=== PATIENT | female | born 2000 | race Caucasian/White ===

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

== ENCOUNTER 2021-03-03 21:48 | Emergency (ER) | payer MEDICAID ==
[~2021-03-03] VITALS: Ht 160 cm; Wt 99.8 kg
[2021-03-03 22:11] VITALS: BP 95/50
--- NOTE | 2021-03-03 22:25 | NUR ---
Patient laying in bed, locked in lowest position, HOB elevated, x1 side rail up. Breathing even and unlabored, chest expansion symmetrical. NAD noted, will continue to monitor. See patient assessment for more information.
--- NOTE | 2021-03-03 22:36 | NUR ---
Dr. Ospina examining patient.
[2021-03-03] MEDS ORDERED: IBUPROFEN 600 MG TAB PO ONE (22:40)
--- NOTE | 2021-03-03 22:44 | NUR ---
X-Ray at bedside.
--- NOTE | 2021-03-04 00:06 | NUR ---
Dr. Richter examining patient.
--- NOTE | 2021-03-04 00:20 | NUR ---
JULIANA WRAP PLACED ON PT R ANKLE. +CSM
--- NOTE | 2021-03-04 00:21 | NUR ---
PT GIVEN INSTRUCTION ON PROPER USE OF CRUTCHES. CRUTCHES FITTED TO PT HEIGHT AND ARM LENGTH. PT DEMONSTRATED SAFE USE FOR APPROXIMATELY 40 FEET, PT STATED SHE FELT COMFORTABLE WITH USE.
[2021-03-04] MEDS ORDERED: NAPR-54 PO (00:41)
[2021-03-04 00:49] VITALS: BP 95/50
--- NOTE | 2021-03-04 00:49 | NUR ---
Patient discharged with v/s stable. Written and verbal after care instructions given and explained by . Patient alert, oriented and verbalized understanding of instructions. Ambulatory with steady gait. All questions addressed prior to discharge BY . ID band removed. Patient advised to follow up with PMD. Rx of given. Patient educated on indication of medication including possible reaction and side effects BY . Opportunity to ask questions provided and answered BY .
== END 2021-03-04 00:49 | disposition home or self-care (01) ==
LOC: MED 21:48
DX: S93.401A Sprain of unspecified ligament of right ankle, initial encounter (principal); Z79.899 Other long term (current) drug therapy; Z98.890 Other specified postprocedural states; W19.XXXA Unspecified fall, initial encounter; Y93.02 Activity, running; Y92.89 Other specified places as the place of occurrence of the external cause; Y99.8 Other external cause status
CPT/HCPCS: 73610; 99283